=== PATIENT | female | born 1980 | race Caucasian/White ===

== ENCOUNTER 2016-12-16 16:16 | Emergency (ER) | payer OTHER ==
[~2016-12-16 16:16] MED LIST: ALPRAZOLAM PO; BACLOFEN10 MG PO; CELEXA PO; DICLOFENAC SODI50 MG PO; IBUPROFEN800 MG PO; KEFLEX500 MG PO; LORTAB 101 TAB 10/5 PO; MUCINEX D ER T1 EAC1 PO; NAPROSYN500 MG PO; NEURONTIN PO; NEURONTIN300 MG PO; NYQUIL D COLD295 ML; PHENERGAN25 M1 PO; PRILOSEC PO; PROAIR HFA8.5 GM INH; PROMETHAZINE-D240 ML PO; TAMIFLU75 M1 PO; TOPAMAX; ZITHROMAX PO
== END 2016-12-16 16:40 | disposition home or self-care (01) ==
LOC: CFTX 16:16
DX: M79.644 Pain in right finger(s) (principal); F41.8 Other specified anxiety disorders; Z90.49 Acquired absence of other specified parts of digestive tract; F17.210 Nicotine dependence, cigarettes, uncomplicated; Z88.2 Allergy status to sulfonamides
CPT/HCPCS: 29125; 99283

== ENCOUNTER → 2017-04-06 | Outpatient (CLI) | payer OTHER ==
[~2017-04-06] MED LIST changes: +CELEXA20 MG PO
--- NOTE | ~2017-04-06 | MR32 ---
[facility] A Service of [facility] & [facility] RADIOLOGY TEXT RESULTS PATIENT: JAIRON DEGROOT LOCATION: [facility] : 76 UNIT #: [id number] AGE: [address]: Wisam Li MD SEX: F ORDER DR: [id number] [place] [id number] O MR#: [id number] Acc #: [id number] NAME: JAIRON DEGROOT : 1980 SEX: F STUDY DATE/TIME: 04/06/2017 11:30 UNIT: [facility] ROOM: STUDY DESCRIPTION: MR Cervical Wo Contrast Attending Physician: Wisam Li M.D. Referring Physician: Wisam Li M.D. Ordering Physician: Wisam Li M.D. Primary Care Physician: Wisam Li M.D. MRI CENTER REPORT This report is preliminary unless electronic signature is present. EXAM Cervical MRI HISTORY Neck pain gradually worsening over the past 8 years and radiating toward the left, accompanied by muscle spasms. Additional history of hepatitis C. TECHNIQUE Multiplanar imaging of the cervical spine was performed with short and long TR. FINDINGS Cervical straightening is noted. Degenerative changes are seen throughout the cervical discs. At C2-3, degenerative changes are mild, and the canal and foramina are widely patent. At C3-4, there is a broad-based posterior disc-osteophyte complex that extends more to the left than to the right. It causes mild central stenosis. Foraminal stenosis is present on the left to a mild degree. At C4-5, the disc is collapsed. There is a broad-based disc-osteophyte complex both on the left and right uncovertebral joints, much larger on the left side. The left ventral cord is contacted by the osteophyte and the foramen is severely narrowed. Central stenosis is moderate. The right foramen is narrowed only to a mild degree. At C5-6, the disc is collapsed and there is broad-based posterior disc and osteophyte formation with moderate central stenosis and mild bilateral foraminal stenosis. At C6-7, there is mild central disc bulging with osteophyte. The canal STS. [facility] A Service of [facility] & [facility] RADIOLOGY TEXT RESULTS PATIENT: JAIRON DEGROOT LOCATION: [facility] : 76 UNIT #: [id number] AGE: [address]: Wisam Li MD SEX: F ORDER DR: and foramina are widely patent. The C7-T1 level is unremarkable. Cervical cord is normal in size and signal. There is no evidence of marrow edema. No paraspinous masses are seen. IMPRESSION Multilevel degenerative disc disease as described above, level by level. Degenerative changes are asymmetrically worse toward the left most prominently at C4-5, where there is severe left foraminal stenosis. This is the most likely source for left-sided radicular symptoms. Central stenosis is most prominent at C4-5 toward the left and at C5-6 generally. Dictated by... Zak Guerra M.D. THIS IS AN ELECTRONICALLY VERIFIED REPORT Zak Guerra M.D. at 04/12/2017 7:10 AM OMAR/arabella TD: 04/06/2017 21:03 JOB #: [id number] MRI CENTER REPORT Page 1 of 1
== END | disposition home or self-care (01) ==
LOC: SMRI 03-31 09:30
DX: M54.2 Cervicalgia (principal); M50.30 Other cervical disc degeneration, unspecified cervical region; M47.892 Other spondylosis, cervical region
CPT/HCPCS: 72141

== ENCOUNTER 2017-05-14 08:46 | Emergency (ER) | payer OTHER ==
--- NOTE | ~2017-05-14 | CT2 ---
[facility] A Service [facility] RADIOLOGY TEXT RESULTS PATIENT: JAIRON DEGROOT LOCATION: SED : 76 UNIT #: [id number] AGE: [address]: Eduard Addison MD SEX: F ORDER DR: [id number] [place] [id number] E MR#: [id number] Acc #: [id number] NAME: JAIRON DEGROOT : 1980 SEX: F STUDY DATE/TIME: 05/14/2017 10:45 UNIT: SED ROOM: STUDY DESCRIPTION: CT Abd and Pelv W Cont Attending Physician: Eduard Addison M.D. Ordering Physician: Eduard Addison M.D. Primary Care Physician: Wisam Li M.D. MEDICAL IMAGING REPORT This report is preliminary unless electronic signature is present. EXAM CT of the abdomen and pelvis with contrast INDICATIONS Abdominal pain for 4 days, nausea and vomiting. TECHNIQUE CT abdomen and pelvis performed following the administration of oral and IV contrast. Coronal and sagittal reformatted images were obtained. This CT exam was performed with one or more of the following radiation dose reduction techniques: Automatic exposure control, adjustment of mA and/or kV according to patient size, and iterative reconstruction. Comparison with 03/03/2007. FINDINGS The lung bases are clear. Cholecystectomy. The liver and spleen are unremarkable. The kidneys, adrenal glands and pancreas are unremarkable. PELVIS: The colon is unremarkable. The appendix is normal. The remainder of the pelvis is unremarkable. The bone windows are unremarkable. IMPRESSION Previous cholecystectomy, otherwise, unremarkable. Dictated by... Peter Ramos M.D. THIS IS AN ELECTRONICALLY VERIFIED REPORT Peter Ramos M.D. at 05/15/2017 7:26 AM ARS/psc [facility] A Service [facility] RADIOLOGY TEXT RESULTS PATIENT: JAIRON DEGROOT LOCATION: SED : 76 UNIT #: [id number] AGE: [address]: Eduard Addison MD SEX: F ORDER DR: TD: 05/14/2017 20:58 JOB #: [id number] MEDICAL IMAGING REPORT Page 1 of 1
[~2017-05-14 08:46] MED LIST changes: -CELEXA20 MG PO
[2017-05-14] MEDS ORDERED: CELEXA20 MG PO (08:51)
[2017-05-14 09:38] LABS: BASOPHIL% 0.5 % (0-2.5); DIFF IND NO; EOSINOPHIL# 0.1 X10e3 (0-0.7); EOSINOPHIL% 1.1 % (0.0-7.0); HEMATOCRIT 40.5 % (35.0-45.0); LYMPHOCYTE# 2.4 X10e3 (1.0-3.5); LYMPHOCYTE% 31.9 % (17.0-45.0); MEAN CELL VOLUME 91.2 FL (83-96); MEAN CORPUSCULAR HEMOGLOBIN 31.5 PG (28-34); MEAN CORPUSCULAR HGB CONC 34.5 g/dL (30-36); MEAN PLATELET VOLUME 9.3 FL (6.5-11.5); MONOCYTE# 0.5 X10e3 (0-1.0); MONOCYTE% 7.2 % (3.0-12.0); NEUTROPHIL# 4.5 X10e3 (1.5-7.1); NEUTROPHIL% 59.3 % (40-75); PLATELET COUNT 244 X10e3 (140-420); RED BLOOD COUNT 4.44 X10e (3.90-5.30); RED CELL DISTRIBUTION WIDTH 13.9 % (11.0-15.5); WHITE BLOOD COUNT 7.6 X10e3 (4.0-10.5)
[2017-05-14 09:50] LABS: AMPHETAMINE POS (NEG); BARBITURATES NEG (NEG); BENZODIAZEPINES NEG (NEG); COCAINE NEG (NEG); MARIJUANA POS (NEG); OPIATES NEG (NEG); TRICYCLIC ANTIDEPRESSANTS NEG (NEG); U METHADONE NEG (NEG)
[2017-05-14 09:56] LABS: ALBUMIN SERUM 4.5 g/dL (3.5-5.0); BILIRUBIN, DIRECT 0.1 mg/dL (0.0-0.2); BILIRUBIN,INDIRECT 0.7 mg/dL (0.0-0.9); BILIRUBIN,TOTAL 0.8 mg/dL (0.2-2.0); GLOM FILT RATE Estimated 71.4 mL/min (>60); POTASSIUM 3.3 mmol/L (3.5-5.1); PROTEIN TOTAL SERUM 7.3 g/dL (6.0-8.3)
[2017-05-14 13:46] LABS: MICRO INDICATED? YES; URINE APPEARANCE SL CLOUDY; URINE BILIRUBIN NEG (NEG); URINE BLOOD NEG (NEG); URINE COLOR YELLOW; URINE GLUCOSE 50 MG/DL (NORM); URINE KETONE NEG (NEG); URINE LEUKOCYTE ESTERASE NEG (NEG); URINE NITRATE NEG (NEG); URINE PROTEIN 1+ (NEG); URINE SOURCE CLEAN CATCH; URINE SPECIFIC GRAVITY >=1.030 (1.003-1.035)
[2017-05-14 13:48] LABS: CULTURE INDICATED? NO; URINE BACTERIA NEG (NEG); URINE RBC 0-2 /[HPF] (0-2); URINE WBC 0-2 /[HPF] (0-5)
== END 2017-05-14 12:15 | disposition home or self-care (01) ==
LOC: SED 08:46
PROVIDERS: Emergency Medicine
DX: K85.90 Acute pancreatitis without necrosis or infection, unspecified (principal); F19.10 Other psychoactive substance abuse, uncomplicated; F32.9 Major depressive disorder, single episode, unspecified; F17.210 Nicotine dependence, cigarettes, uncomplicated; Z88.2 Allergy status to sulfonamides; Z88.6 Allergy status to analgesic agent; Z79.899 Other long term (current) drug therapy
CPT/HCPCS: 36415; 74177; 80048; 80076; 80307; 81003; 82150; 83605; 83690; 84703; 85025; 96361; 96374; 96375; 99284; C9113; J2270; J2405; Q9967